=== PATIENT | female | born 1945 | race Caucasian/White ===

== ENCOUNTER 2022-11-19 12:30 | Outpatient (CLI) | payer MEDICARE ==
[2022-11-19] VITALS (17 sets, daily range): BP systolic 110–133; BP diastolic 55–80
== END 2022-11-19 23:59 | disposition home or self-care (01) ==
LOC: CARD DIAG 12:30
PROVIDERS: ATTEND Internal Medicine Interventional Cardiology
DX: R55 Syncope and collapse (principal)
CPT/HCPCS: 93660

== ENCOUNTER 2025-05-30 08:16 | Day surgery (SDC) | payer MEDICARE ==
[~2025-05-30] VITALS: Ht 152.4 cm; Wt 71.3 kg
[2025-05-30] VITALS (12 sets, daily range): BP systolic 113–147; BP diastolic 6–70; PULSE 69–96; RESP 12–18; TEMP 97.4–98; O2SAT 95–100
[~2025-05-30 08:16] MED LIST: AMLO5TAB5 PO; APIX5TAB3 PO; DULO30CA52 PO; ESOM40CA PO; LOSA-415 PO; MAGN100T6 PO; ringers solution, lacted 1,000 ML IV SCH; simethicone 40mg/0.6ml oral drops 15ml PO ONE
--- NOTE | 2025-05-30 10:57 | ELECTROCARDIOGRAPH REPORT ---
[facility] Test Date: 2025-05-30 Test Time: 08:45:44 Pat Name: GILDA CARDOZO Department: PRE/OP CARDIOLOGY [id number] Room: Gender: F [employer]: LAZARA : 1945 Requested By: MARIA L MOSQUERA Order Number: [id number] Reading MD: Dr. Joao Ham Measurements Intervals [place] Rate: 71 P: 59 RI: 164 QRS: 23 QRSD: 76 T: 49 QT: 381 QTc: 414 Interpretive Statements Sinus rhythm Electronically Signed On 05-30-2025 19:57:[address] Joao Ham Please click the below link to view image of tracing.
[2025-05-30] MEDS ORDERED: propofol inj 20 ML IV ONE ×3 (11:21→11:32)
== END 2025-05-30 13:22 | disposition home or self-care (01) ==
LOC: PAS 08:16
PROVIDERS: ATTEND Internal Medicine Gastroenterology
DX: D50.0 Iron deficiency anemia secondary to blood loss (chronic) (principal); K57.30 Diverticulosis of large intestine without perforation or abscess without bleeding; K63.5 Polyp of colon; D12.3 Benign neoplasm of transverse colon; I10 Essential (primary) hypertension; E11.9 Type 2 diabetes mellitus without complications; I48.91 Unspecified atrial fibrillation; Z87.891 Personal history of nicotine dependence; Z86.73 Personal history of transient ischemic attack (TIA), and cerebral infarction without residual deficits; Z96.652 Presence of left artificial knee joint; Z98.890 Other specified postprocedural states
CPT/HCPCS: 45385; 93005; A4615; A4620; J2704; J7120; Z7512; Z7610; 88305